=== PATIENT | female | born 1985 ===

== ENCOUNTER 2021-07-23 01:31 | Inpatient (IN) | payer OTHER ==
[~2021-07-23] VITALS: Ht 167.6 cm; Wt 81.8 kg
[2021-07-23 02:02] LABS: GLUCOMETER DEV NAME(LOC) ERT.5; GLUCOSE,POINT OF CARE 281 MG/DL (70-110)
[2021-07-23] MEDS ORDERED: METF-845 PO (02:14)
[2021-07-23 02:44] LABS: COVID AG,FIA SOURCE NASOPHARYNGEAL
[2021-07-23 02:46] LABS: BASOPHILS % (AUTO) 0.5 % (0.0-2.0); EOSINOPHILS % (AUTO) 2.3 % (1.0-6.0); HEMATOCRIT 35.7 % (36-46); HEMOGLOBIN 10.7 g/dL (12.0-16.0); MEAN CORPUSCULAR HEMOGLOBIN 19.5 pg (26.0-34.0); MEAN CORPUSCULAR HGB CONC 29.9 G/dL (31.0-37.0); MEAN CORPUSCULAR VOLUME 65 fL (80-100); MONOCYTES # (AUTO) 0.4 K/uL (0.1-1.0); MONOCYTES % (AUTO) 5.7 % (2.0-9.0); NEUTROPHILS # (AUTO) 4.1 K/uL (1.8-7.7); NEUTROPHILS % (AUTO) 61.5 % (40.0-70.0); PLATELET COUNT (AUTO) 313 K/uL (150-450); RED BLOOD CELL COUNT(AUTO) 5.46 MIL/uL (4.00-5.20); RED CELL DISTRIBUTION WIDTH 18.1 % (11.5-14.5)
[2021-07-23 02:54] LABS: ANION GAP 8 mmol/L (8-16); CALCIUM, TOTAL 8.9 mg/dL (8.8-10.5); CARBON DIOXIDE 27 mmol/L (22-29); CHLORIDE 103 mmol/L (98-107); CREATININE 0.68 mg/dL (0.60-1.30); GLOMERULAR FILTR. RATE CALC > 60 mL/min (>60); GLUCOSE,RANDOM 312 mg/dL (70-110); POTASSIUM 4.2 mmol/L (3.5-5.1); SODIUM SERUM 138 mmol/L (136-145); UREA NITROGEN, BLOOD 15 mg/dL (7-18)
[2021-07-23 03:00] LABS: ALANINE AMINOTRANSFERASE 19 U/L (12-78); ALBUMIN 3.7 g/dL (3.4-5.0); ALKALINE PHOSPHATASE 125 U/L (46-116); ASPARTATE AMINOTRANSFERASE 12 U/L (15-37); BILIRUBIN,TOTAL 0.3 mg/dL (0.1-1.0); TOTAL PROTEIN, SERUM 7.7 g/dL (6.4-8.2)
[2021-07-23 03:20] LABS: HCG,QUANTITATIVE < 1 mIU/mL (0-6)
[2021-07-23] MEDS ORDERED: ACETAMINOPHEN 325 MG TABLET PO PRN (04:00)
[2021-07-23] MEDS ORDERED: DEXTROSE 50%-WATER 25 GM/50 ML SYRINGE IVP PRN (04:00)
[2021-07-23] MEDS ORDERED: ONDANSETRON HCL 4 MG/2 ML VIAL IVP PRN (04:00)
[2021-07-23 04:06] LABS: RETICULOCYTE % (AUTO) 1.9 % (0.5-2.3)
[2021-07-23 04:13] LABS: % IRON SATURATION 7.6 % (22-44); IRON, SERUM 30 mcg/dL (50-175); TOTAL IRON BINDING CAPACITY 390 mcg/dL (250-450)
[2021-07-23] MEDS: INSULIN GLARGINE,HUM.REC.ANLOG 100 UNITS/ML SQ SCH (04:15)
[2021-07-23 04:20] LABS: HEMOGLOBIN A1C 12.2 % (3.8-5.6)
[2021-07-23] MEDS: INSULIN LISPRO 100 UNITS/ML SQ PRN ×4 (08:02→20:23)
[2021-07-23] MEDS: HEPARIN SODIUM,PORCINE 5,000 UNITS/ML VIAL SQ SCH ×3 (08:02→23:40)
[2021-07-23 08:09] LABS: GLUCOMETER DEV NAME(LOC) ERT.5; GLUCOSE,POINT OF CARE 303 MG/DL (70-110)
[2021-07-23 09:26] VITALS: BP 127/69
[2021-07-23] MEDS ORDERED: SODIUM CHLORIDE 0.9% 100 ML ONE (12:04)
[2021-07-23] MEDS ORDERED: IOHEXOL 350 MG/ML 100 ML VIAL ONE (12:04)
[2021-07-23] MEDS ORDERED: SODIUM CHLORIDE 3% 15 ML NEB SOLUTION NEB ONE (15:20)
[2021-07-23 20:05] VITALS: BP 102/65
[2021-07-23 21:30] LABS: GLUCOMETER DEV NAME(LOC) 6N.1; GLUCOSE,POINT OF CARE 277 MG/DL (70-110)
[2021-07-23 21:30] LABS: GLUCOMETER DEV NAME(LOC) 6S.1; GLUCOSE,POINT OF CARE 214 MG/DL (70-110)
[2021-07-23 21:30] LABS: GLUCOMETER DEV NAME(LOC) 6N.1; GLUCOSE,POINT OF CARE 291 MG/DL (70-110)
[2021-07-24] MEDS ORDERED: SODIUM CHLORIDE 3% 15 ML NEB SOLUTION NEB ONE ×2 (00:30→08:41)
[2021-07-24] MEDS: INSULIN GLARGINE,HUM.REC.ANLOG 100 UNITS/ML SQ SCH (04:11)
[2021-07-24 05:20] VITALS: BP 111/73
[2021-07-24 06:24] LABS: GLUCOMETER DEV NAME(LOC) 6N.1; GLUCOSE,POINT OF CARE 255 MG/DL (70-110)
[2021-07-24] MEDS: INSULIN LISPRO 100 UNITS/ML SQ PRN ×4 (06:24→21:25)
[2021-07-24 08:06] LABS: HIV 1-2 SCREEN 4TH GEN W/RFLX Non Reactive (Non Reactive)
[2021-07-24 08:18] VITALS: BP 113/65
[2021-07-24] MEDS: HEPARIN SODIUM,PORCINE 5,000 UNITS/ML VIAL SQ SCH ×2 (08:20→15:54)
[2021-07-24] MEDS: MULTIVITAMINS WITH MINERALS, THERAPEUTIC TABLET PO SCH (08:20)
[2021-07-24 12:16] LABS: GLUCOMETER DEV NAME(LOC) 6S.1; GLUCOSE,POINT OF CARE 312 MG/DL (70-110)
[2021-07-24 18:58] LABS: GLUCOMETER DEV NAME(LOC) 6N.1; GLUCOSE,POINT OF CARE 239 MG/DL (70-110)
[2021-07-24 19:47] VITALS: BP 110/76
[2021-07-25] MEDS: HEPARIN SODIUM,PORCINE 5,000 UNITS/ML VIAL SQ SCH ×3 (00:53→16:00)
[2021-07-25 05:05] VITALS: BP_SYST 125; BP_SYST 135; BP_DIAS 68; BP_DIAS 82
[2021-07-25] MEDS: INSULIN GLARGINE,HUM.REC.ANLOG 100 UNITS/ML SQ SCH ×2 (05:16→22:12)
[2021-07-25] MEDS: INSULIN LISPRO 100 UNITS/ML SQ PRN ×4 (05:17→22:01)
[2021-07-25 06:53] LABS: GLUCOMETER DEV NAME(LOC) 6S.1; GLUCOSE,POINT OF CARE 251 MG/DL (70-110)
[2021-07-25 06:53] LABS: GLUCOMETER DEV NAME(LOC) 6S.1; GLUCOSE,POINT OF CARE 325 MG/DL (70-110)
[2021-07-25 07:35] VITALS: BP 113/69
[2021-07-25] MEDS: MULTIVITAMINS WITH MINERALS, THERAPEUTIC TABLET PO SCH (09:06)
[2021-07-25 13:13] LABS: GLUCOMETER DEV NAME(LOC) 6N.1; GLUCOSE,POINT OF CARE 306 MG/DL (70-110)
[2021-07-25 17:00] LABS: GLUCOMETER DEV NAME(LOC) 6N.1; GLUCOSE,POINT OF CARE 281 MG/DL (70-110)
[2021-07-25 20:46] VITALS: BP 110/72
[2021-07-26] MEDS: HEPARIN SODIUM,PORCINE 5,000 UNITS/ML VIAL SQ SCH ×3 (00:12→17:17)
[2021-07-26 00:55] LABS: GLUCOMETER DEV NAME(LOC) 6S.1; GLUCOSE,POINT OF CARE 293 MG/DL (70-110)
[2021-07-26 06:06] VITALS: BP 134/71
[2021-07-26] MEDS: INSULIN LISPRO 100 UNITS/ML SQ PRN ×4 (06:30→20:23)
[2021-07-26 07:06] LABS: QUANTIFERON, TB GOLD PLUS Negative (Negative)
[2021-07-26 07:35] LABS: GLUCOMETER DEV NAME(LOC) 6N.1; GLUCOSE,POINT OF CARE 248 MG/DL (70-110)
[2021-07-26 08:04] VITALS: BP 114/66
[2021-07-26] MEDS: MULTIVITAMINS WITH MINERALS, THERAPEUTIC TABLET PO SCH (08:22)
[2021-07-26 15:40] VITALS: BP 99/60
[2021-07-26 20:00] VITALS: BP 118/67
[2021-07-26] MEDS: INSULIN GLARGINE,HUM.REC.ANLOG 100 UNITS/ML SQ SCH (20:22)
[2021-07-26 23:26] LABS: GLUCOMETER DEV NAME(LOC) 6N.1; GLUCOSE,POINT OF CARE 293 MG/DL (70-110)
[2021-07-26 23:26] LABS: GLUCOMETER DEV NAME(LOC) 6N.1; GLUCOSE,POINT OF CARE 259 MG/DL (70-110)
[2021-07-26 23:26] LABS: GLUCOMETER DEV NAME(LOC) 6S.1; GLUCOSE,POINT OF CARE 341 MG/DL (70-110)
[2021-07-27] MEDS: HEPARIN SODIUM,PORCINE 5,000 UNITS/ML VIAL SQ SCH ×4 (00:24→23:51)
[2021-07-27 05:05] VITALS: BP 111/70
[2021-07-27] MEDS: INSULIN LISPRO 100 UNITS/ML SQ PRN ×4 (06:12→21:26)
[2021-07-27 07:31] VITALS: BP 121/74
[2021-07-27 09:06] LABS: GLUCOMETER DEV NAME(LOC) 6S.1; GLUCOSE,POINT OF CARE 241 MG/DL (70-110)
[2021-07-27] MEDS: MULTIVITAMINS WITH MINERALS, THERAPEUTIC TABLET PO SCH (10:10)
[2021-07-27 15:38] VITALS: BP 116/63
[2021-07-27 17:34] LABS: GLUCOMETER DEV NAME(LOC) 6S.1; GLUCOSE,POINT OF CARE 259 MG/DL (70-110)
[2021-07-27 17:34] LABS: GLUCOMETER DEV NAME(LOC) 6S.1; GLUCOSE,POINT OF CARE 278 MG/DL (70-110)
[2021-07-27 19:48] VITALS: BP 109/61
[2021-07-27] MEDS ORDERED: ZOLPIDEM TARTRATE 5 MG TABLET PO PRN (20:45)
[2021-07-27] MEDS: INSULIN GLARGINE,HUM.REC.ANLOG 100 UNITS/ML SQ SCH (21:24)
[2021-07-28 04:45] VITALS: BP 114/69
[2021-07-28 04:50] LABS: GLUCOMETER DEV NAME(LOC) 6N.1; GLUCOSE,POINT OF CARE 300 MG/DL (70-110)
[2021-07-28] MEDS: INSULIN LISPRO 100 UNITS/ML SQ PRN ×2 (05:50→11:20)
[2021-07-28 06:50] LABS: GLUCOMETER DEV NAME(LOC) 6S.1; GLUCOSE,POINT OF CARE 240 MG/DL (70-110)
[2021-07-28 07:37] VITALS: BP 102/71
[2021-07-28] MEDS: HEPARIN SODIUM,PORCINE 5,000 UNITS/ML VIAL SQ SCH ×3 (08:00→16:00)
[2021-07-28] MEDS: MULTIVITAMINS WITH MINERALS, THERAPEUTIC TABLET PO SCH (08:11)
[2021-07-28] MEDS ORDERED: INSLAN SQ (11:39)
[2021-07-28] MEDS ORDERED: INFLUENZA VIRUS VACCINE QVS 2021-22 (6MO+)/PF 60 MCG/0.5 ML SYRINGE IM. ONE (13:45)
[2021-07-28 15:38] LABS: GLUCOMETER DEV NAME(LOC) 6S.1; GLUCOSE,POINT OF CARE 270 MG/DL (70-110)
== END 2021-07-28 17:15 | DRG 206 ==
LOC: EMS 01:34 → 6S 08:10
PROVIDERS: ADMIT Internal Medicine; ATTEND Internal Medicine
DX: R91.1 Solitary pulmonary nodule (principal); K92.2 Gastrointestinal hemorrhage, unspecified; E11.65 Type 2 diabetes mellitus with hyperglycemia; D64.9 Anemia, unspecified; E66.9 Obesity, unspecified; Z20.822 Contact with and (suspected) exposure to COVID-19; F17.210 Nicotine dependence, cigarettes, uncomplicated; Z68.29 Body mass index [BMI] 29.0-29.9, adult; S22.42XD Multiple fractures of ribs, left side, subsequent encounter for fracture with routine healing
CPT/HCPCS: 71045; 71260; 80053; 82962; 83036; 83540; 83550; 84702; 85025; 85045; 86480; 87015; 87206; 87389; 87556; 94640; 94799; 99285; J1644; J1815; J7050; Q9967; 36415-L1; 36415-TC; U0003